=== PATIENT | female | born 1955 | race Caucasian/White ===

== ENCOUNTER 2018-10-31 16:42 | Emergency (ER) | payer BC ==
--- NOTE | 2018-10-31 17:09 | ER Document Report ---
ED Medical Screen (RME) - General Chief Complaint: Chest Pain Stated Complaint: CHEST PAIN Time Seen by Provider: 10/31/18 17:08 Mode of Arrival: Wheelchair Information source: Patient Notes: 63-year-old female presents to ED for chest pain since last night. She is taken nitroglycerin x3 throughout the day with no relief from her chest pain. She does have a history of coronary artery disease high blood pressure and cholesterol and has had a four-way CABG. Patient is alert oriented respirations regular and unlabored speaking in full sentences. She states she is in a lot of pain at this time. I have greeted and performed a rapid initial assessment of this patient. A comprehensive ED assessment and evaluation of the patient, analysis of test results and completion of medical decision making process will be conducted by an additional ED providers. - Related Data Allergies/Adverse Reactions: codeine Allergy (Verified 10/31/18 17:06) Sulfa (Sulfonamide Antibiotics) Allergy (Verified 10/31/18 17:06) Past Medical History Renal/ Medical History: Denies: Hx Peritoneal Dialysis Physical Exam - Vital signs Vitals: Temp Pulse BP Pulse Ox 97.5 F 103 H 141/92 H 98 10/31/18 16:53 10/31/18 16:53 10/31/18 16:53 10/31/18 16:53 Course - Vital Signs Vital signs: Temp Pulse Resp BP Pulse Ox 97.5 F 103 H 141/92 H 98 10/31/18 16:53 10/31/18 16:53 10/31/18 16:53 10/31/18 16:53
[2018-10-31] MEDS ORDERED: ASPIRIN 81 MG TABLET, CHEWABLE PO ONE (17:10)
[2018-10-31] MEDS ORDERED: MORPHINE SULFATE 10 MG/ML INJ IV ONE ×2 (17:13→20:01)
--- NOTE | 2018-10-31 17:27 | ER Document Report ---
ED General - General Chief Complaint: Chest Pain Stated Complaint: CHEST PAIN Time Seen by Provider: 10/31/18 17:08 Primary Care Provider: SALUD STRONG MD [Primary Care Provider] - Follow up as needed Mode of Arrival: Wheelchair Notes: Patient is a 63-year-old female with history of CAD, hypertension hyperlipidemia and CABG x4 multiple stents that presents to the emergency department for chief complaint of chest pain. The patient reports that the pain started past week, was off and on and worse with exertion, but now she is having the pain at rest, and its been constant, over the past few hours, but Are typically worse today, she states the pain is in the left side and radiates to her right and left shoulders. The currently rate the pain as 7 out of 10, and described as hea viness and pressure in her chest, with a burning sensation as well. They have had associated nausea, shortness of breath. Their risk factors for heart disease include CAD as noted above she had CABG x4 in 2013, with stents afterwards, most recently in 2015 the patient believes, she states she recently had a stress test about a week ago, but does not know the results yet. Past Medical History: CAD, hypertension, hyperlipidemia Past Surgical History: CABG x4, PCI with stenting Social History: Denies tobacco, alcohol or illicit drug use. Former smoker. Family History: Reviewed and noncontributory for presenting illness Allergies: Reviewed, see documented allergy list. REVIEW OF SYSTEMS: Other than noted above, the 12 point review of systems was reviewed with the patient and were negative, all pertinent findings are included in the HPI. PHYSICAL EXAMINATION: Vital signs reviewed, nursing noted reviewed. GENERAL: Patient appears uncomfortable on exam, anxious as well HEAD: Atraumatic, normocephalic. EYES: Eyes appear normal, extraocular movements intact, sclera anicteric, conj unctiva are normal. ENT: nares patent, oropharynx clear without exudates. Moist mucous membranes. NECK: Normal range of motion, supple without lymphadenopathy LUNGS: Breath sounds clear to auscultation bilaterally and equal. No wheezes rales or rhonchi. No chest wall tenderness. HEART: Heart rate tachycardic, regular rhythm, no audible murmur ABDOMEN: Soft, nontender, normoactive bowel sounds. No rebound, guarding, or rigidity. No masses appreciated. EXTREMITIES: Nontender, good range of motion, no pitting or edema. NEUROLOGICAL: No focal neurological deficits. Moves all extremities spontaneously Motor and sensory grossly intact on exam. PSYCH: Appears mildly anxious on exam, but answering questions appropriately SKIN: Warm, Dry, normal turgor, no rashes or lesions noted on exposed skin - Related Data Allergies/Adverse Reactions: codeine Allergy (Verified 10/31/18 17:06) Sulfa (Sulfonamide Antibiotics) Allergy (Verified 10/31/18 17:06) Past Medical History - General Information source: Patient - Social History Smoking Status: Former Smoker Family History: Reviewed & Not Pertinent Patient has suicidal ideation: No Patient has homicidal ideation: No Renal/ Medical History: Denies: Hx Peritoneal Dialysis Physical Exam - Vital signs Vitals: Temp Pulse BP Pulse Ox 97.5 F 103 H 141/92 H 98 10/31/18 16:53 10/31/18 16:53 10/31/18 16:53 10/31/18 16:53 Course - Re-evaluation Re-evalutation: Patient seen and examined vital signs reviewed. Laboratory data and imaging were ordered as appropriate for the patient's presenting symptoms and complaint, with consideration of any critical or life threatening conditions that may be associated with their obtained history and exam as noted above. Patient was treated with aspirin, she had already taken her Plavix, 2 baby aspirin at home, given additional 2 baby aspirin, she was also given a dose of subcu Lovenox, as I am concerned the patient has unstable angina, she has ST depressions in the anterior leads, on her EKG, her initial troponin however was negative, however given her strong history, and presentation, and abnormal EKG I feel that she should be transferred, I did discuss with her fur mixer Dr. Helm, and he was concerned as well, we do not have Mixing Machine Tender [employer] until Thursday apparently, and he recommended transfer in case she needs intervention. Patient is also given a dose of p.o. metoprolol, and morphine ordered in triage. The patient was re-evaluated and was improving, pain was nearly resolved, repeat EKG was ordered at this time. Repeat EKG as noted, redemonstrates ST depressions in leads V2 through V5, but do appear to be improving. Evaluation was most consistent with unstable angina, I did discuss his case with Dr. Hampton, at [facility], who graciously accepted the patient under his service. Results were discussed with the patient at this point after careful consideration I feel that that patient should be transferred to [facility] due to need for cardiology evaluation and possible intervention given this is a high risk patient. This was discussed with the patient that it is in the best interest for their care to be transferred, the risks and benefits of transfer were discussed, including but not limited to clinical deterioration during transport, respiratory distress, and potential for traumatic injuries. Patient agreed with this plan of care. *Note is created using voice recognition software and may contain spelling, syn tax or grammatical errors. Laboratory 10/31/18 10/31/18 10/31/18 17:27 17:27 17:27 WBC 5.6 RBC 4.62 Hgb 13.5 Hct 40.8 MCV 88 MCH 29.2 MCHC 33.0 RDW 14.4 H Plt Count 257 Lymph % (Auto) 37.4 Reeves % (Auto) 8.6 Eos % (Auto) 2.0 Baso % (Auto) 0.6 Absolute Neuts (auto) 2.9 Absolute Lymphs (auto) 2.1 Absolute Monos (auto) 0.5 Absolute Eos (auto) 0.1 Absolute Basos (auto) 0.0 Seg Neutrophils % 51.4 PT INR APTT Sodium 139.9 Potassium 4.2 Chloride 99 Carbon Dioxide 31 H Anion Gap 10 BUN 24 H Creatinine 1.00 Est GFR ( Amer) > 60 Est GFR (MDRD) Non-Af 56 L Glucose 99 Calcium 9.5 Total Bilirubin 0.3 Direct Bilirubin 0.2 Neonat Total Bilirubin Not Reportable Neonat Direct Bilirubin Not Reportable Neonat Indirect Bili Not Reportable AST 25 ALT 23 Alkaline Phosphatase 128 H Creatine Kinase 53 CK-MB (CK-2) 0.32 Troponin I < 0.012 Total Protein 7.2 Albumin 4.5 Lipase 239.0 Urine Color Urine Appearance Urine pH Ur Specific [place] Urine Protein Urine Glucose (UA) Urine Ketones Urine Blood Urine Nitrite Urine Bilirubin Urine Urobilinogen Ur Leukocyte Esterase Urine WBC (Auto) Urine Mucus (Auto) Urine Ascorbic Acid 10/31/18 10/31/18 17:27 18:32 WBC RBC Hgb Hct MCV MCH MCHC RDW Plt Count Lymph % (Auto) Reeves % (Auto) Eos % (Auto) Baso % (Auto) Absolute Neuts (auto) Absolute Lymphs (auto) Absolute Monos (auto) Absolute Eos (auto) Absolute Basos (auto) Seg Neutrophils % PT 12.4 INR 0.92 APTT 28.4 Sodium Potassium Chloride Carbon Dioxide Anion Gap BUN Creatinine Est GFR ( Amer) Est GFR (MDRD) Non-Af Glucose Calcium Total Bilirubin Direct Bilirubin Neonat Total Bilirubin Neonat Direct Bilirubin Neonat Indirect Bili AST ALT Alkaline Phosphatase Creatine Kinase CK-MB (CK-2) Troponin I Total Protein Albumin Lipase Urine Color STRAW Urine Appearance CLEAR Urine pH 6.0 Ur Specific [place] 1.006 Urine Protein NEGATIVE Urine Glucose (UA) NEGATIVE Urine Ketones NEGATIVE Urine Blood NEGATIVE Urine Nitrite NEGATIVE Urine Bilirubin NEGATIVE Urine Urobilinogen NEGATIVE Ur Leukocyte Esterase NEGATIVE Urine WBC (Auto) 1 Urine Mucus (Auto) RARE Urine Ascorbic Acid NEGATIVE Chest X-Ray 10/31/18 16:51 IMPRESSION: NO ACUTE DISEASE. - Vital Signs Vital signs: Temp Pulse Resp BP Pulse Ox 97.5 F 103 H 10 L 122/69 93 10/31/18 16:53 10/31/18 16:53 10/31/18 19:01 10/31/18 19:01 10/31/18 19:01 - Laboratory Result Diagrams: 10/31/18 17:27 10/31/18 17:27 Laboratory results interpreted by me: 10/31/18 10/31/18 17:27 17:27 RDW 14.4 H Carbon Dioxide 31 H BUN 24 H Est GFR (MDRD) Non-Af 56 L Alkaline Phosphatase 128 H - EKG Interpretation by Me Additional EKG results interpreted by me: EKG demonstrates sinus rhythm with a ventricular rate of 81 bpm, normal axis, normal intervals, there is noted to be ST depressions, most prominent in leads V2, V3, V4 also noted in V5 and V6, as well as leads I, II and aVF. 10/31/18 20:35 EKG #2 demonstrates sinus rhythm with a ventricular rate of 69 bpm, normal axis, normal intervals, ST depression noted on previous EKG in leads V2, V3, V4 and V5 are improving, ST depressions noted in leads II and aVF in lead I, have resolved. Critical Care Note - Critical Care Note Total time excluding time spent on procedures (mins): 35 Comments: Critical care time 35 minutes exclusive from separate billable procedures for a patient requiring complex medical decision making, and high potential for clinical deterioration. In a patient I feel is presenting with acute ACS, requiring transfer to a facility with interventional cardiology, and aggressive treatment. Time spent obtaining history from patient or surrogate, discussions with consultants, development of treatment plan with patient or surrogate, evaluation of patient's response to treatment, examination of patient, ordering and performing treatments and interventions, ordering and review of laboratory studies, re-evaluation of patient's condition, ordering and review of radiographic studies and review of old charts Discharge - Discharge Clinical Impression: Unstable angina, Acute electrocardiogram changes Condition: Stable Disposition: [facility] Referrals: SALUD STRONG MD [Primary Care Provider] - Follow up as needed
[2018-10-31 17:40] LABS: ABSOLUTE EOSINOPHILS # (AUTO) 0.1 10^3/uL (0.0-0.6); ABSOLUTE LYMPHOCYTES (AUTO) 2.1 10^3/uL (0.5-4.7); ABSOLUTE MONOCYTES (AUTO) 0.5 10^3/uL (0.1-1.4); ABSOLUTE NEUT (AUTO) 2.9 10^3/uL (1.7-8.2); BASOPHILS % (AUTO) 0.6 % (0-2); HEMATOCRIT 40.8 % (36.0-47.0); HEMOGLOBIN 13.5 g/dL (12.0-15.5); LYMPHOCYTES % (AUTO) 37.4 % (13-45); MEAN CORPUSCULAR HEMOGLOBIN 29.2 pg (27.0-33.4); MEAN CORPUSCULAR VOLUME 88 fl (80-97); MONOCYTES % (AUTO) 8.6 % (3-13); PLATELET COUNT 257 10^3/uL (150-450); RED BLOOD COUNT 4.62 10^6/uL (3.72-5.28); RED CELL DISTRIBUTION WIDTH 14.4 % (11.5-14.0); SEGMENTED NEUTROPHILS % (AUTO) 51.4 % (42-78); TOTAL CELLS COUNTED % (AUTO) 100 %; WHITE BLOOD COUNT 5.6 10^3/uL (4.0-10.5)
--- NOTE | 2018-10-31 17:56 | RADIOLOGY REPORT (SQ) ---
EXAM DESCRIPTION: CHEST 2 VIEWS COMPLETED DATE/TIME: 10/31/2018 5:44 pm REASON FOR STUDY: chest pain COMPARISON: None. EXAM PARAMETERS: NUMBER OF VIEWS: two views TECHNIQUE: Digital Frontal and Lateral radiographic views of the chest acquired. RADIATION DOSE: NA LIMITATIONS: none FINDINGS: LUNGS AND PLEURA: No acute infiltrates or effusions. MEDIASTINUM AND HILAR STRUCTURES: No masses or contour abnormalities. HEART AND VASCULAR STRUCTURES: Normal heart and pulmonary vasculature. . BONES: No acute findings. HARDWARE: Median sternotomy wires and changes of CABG are noted. OTHER: No other significant finding. IMPRESSION: NO ACUTE DISEASE. TECHNICAL DOCUMENTATION: JOB ID: [id number] [employer]- All Rights Reserved Reading location - IP/workstation name: [email or web address]
[2018-10-31 17:58] LABS: ALBUMIN 4.5 g/dL (3.5-5.0); ALKALINE PHOSPHATASE 128 U/L (38-126); ANION GAP 10 (5-19); ASPARTATE AMINO TRANSFERASE 25 U/L (14-36); BILIRUBIN,DIRECT 0.2 mg/dL (0.0-0.4); BILIRUBIN,TOTAL 0.3 mg/dL (0.2-1.3); BLOOD UREA NITROGEN 24 mg/dL (7-20); CALCIUM 9.5 mg/dL (8.4-10.2); CARBON DIOXIDE 31 mmol/L (22-30); CHLORIDE 99 mmol/L (98-107); CREATINE KINASE 53 U/L (30-135); GLUCOSE 99 mg/dL (75-110); POTASSIUM 4.2 mmol/L (3.6-5.0); TOTAL PROTEIN 7.2 g/dL (6.3-8.2)
[2018-10-31 18:08] LABS: CREATINE KINASE MB 0.32 ng/mL (<4.55)
[2018-10-31 18:10] LABS: TROPONIN I < 0.012 ng/mL
[2018-10-31] MEDS ORDERED: METOPROLOL TARTRATE 25 MG TABLET PO ONE (18:15)
[2018-10-31] MEDS ORDERED: ENOXAPARIN SODIUM INJ 80 MG/0.8 ML DISP.SYRIN SUBCUT STA (18:20)
[2018-10-31 18:40] LABS: INTERNATIONAL RATION (INR) 0.92; PARTIAL THROMBOPLASTIN TIME 28.4 SEC (23.5-35.8); PROTHROMBIN TIME 12.4 SEC (11.4-15.4)
[2018-10-31 19:12] LABS: APPEARANCE,URINE CLEAR; BILIRUBIN,URINE NEGATIVE (NEGATIVE); COLOR,URINE STRAW; GLUCOSE, URINE NEGATIVE (NEGATIVE); KETONES,URINE NEGATIVE (NEGATIVE); LEUKOCYTE ESTERASE,URINE NEGATIVE (NEGATIVE); NITRITE,URINE NEGATIVE (NEGATIVE); PROTEIN,URINE NEGATIVE (NEGATIVE); URINE SPECIFIC GRAVITY 1.006; UROBILINOGEN,URINE NEGATIVE mg/dL (<2.0)
[2018-10-31 23:03] VITALS: BP 107/60
--- NOTE | 2018-11-01 00:17 | EKG REPORT ---
SEVERITY:- ABNORMAL ECG - SINUS RHYTHM REPOL ABNRM SUGGESTS ISCHEMIA, ANT-LAT LEADS : Confirmed by: Char Grover MD 01-Nov-2018 00:16:05
--- NOTE | 2018-11-01 00:17 | EKG REPORT ---
SEVERITY:- NORMAL ECG - SINUS RHYTHM : Confirmed by: Char Grover MD 01-Nov-2018 00:16:01
== END 2018-10-31 23:30 | disposition short-term general hospital (02) ==
LOC: ER 16:42
DX: I20.0 Unstable angina (principal); R94.31 Abnormal electrocardiogram [ECG] [EKG]; R07.9 Chest pain, unspecified; I10 Essential (primary) hypertension; E78.5 Hyperlipidemia, unspecified; Z95.1 Presence of aortocoronary bypass graft; Z79.01 Long term (current) use of anticoagulants
CPT/HCPCS: 93005; 96376; 99291; 96374; 96375; 36415; 82553; 82550; 83690; 85025; 85610; 85730; 80053; 81001; 84484; 71046; 93010; J2270; J1650